=== PATIENT | female | born 1985 | race Caucasian/White ===

== ENCOUNTER 2019-09-01 09:14 | Outpatient (CLI) | payer OTHER, SELFPAY ==
[2019-09-01 09:40] LABS: Hemoglobin A1C 5.5 % (<5.7)
[2019-09-04 00:43] LABS: Insulin Level Total 27.3 uIU/mL (2.0-19.6)
[2019-09-04 12:02] LABS: Vitamin D 25 Hydroxy 39 ng/mL (30-100)
== END 2019-09-01 09:15 | disposition home or self-care (01) ==
LOC: CHSLAB 09:21
PROVIDERS: PCP Family Medicine; Visit Provider Obstetrics & Gynecology Gynecology
DX: E55.9 Vitamin D deficiency, unspecified (principal); E28.2 Polycystic ovarian syndrome
CPT/HCPCS: 36415; 82306; 83036; 83525

== ENCOUNTER → 2020-05-13 12:50 | Outpatient (CLI) | payer OTHER, SELFPAY ==
--- NOTE | ~2020-05-13 | US_ITS ---
EXAMINATION: US transvaginal DATE: 05/13/2020 13:10 INDICATION: Abnormal uterine bleeding, PC OS TECHNIQUE: Multiple endovaginal sonographic images of the pelvis were obtained. COMPARISON: 02/26/2008 FINDINGS: The uterus measures 9.3 x 4.8 x 5.3 cm. The endometrial complex measures 6 mm. The right ov evelin measures 2.9 x 1.7 x 2.4 cm. The left ovary measures 3. 2 x 2 by 1.9 cm. There is normal vascular flow in the ovaries. There is no free fluid in the pelvis. IMPRESSION: 1. No sonographic correlate for the patient's symptoms. Reviewed, dictated and finalized at location A.
== END ==
PROVIDERS: PCP Family Medicine; Visit Provider Nurse Practitioner
DX: N93.9 Abnormal uterine and vaginal bleeding, unspecified (principal)
CPT/HCPCS: 76830

== ENCOUNTER 2020-06-14 11:09 | Outpatient (CLI) | payer OTHER, SELFPAY ==
[2020-06-14 11:25] LABS: Basophils Absolute Auto 0.02 K/mm3 (0.00-0.10); Basophils Percent Auto 0.3 % (0.0-1.0); Eosinophils Absolute Auto 0.05 K/mm3 (0.02-0.50); Eosinophils Percent Auto 0.6 % (1.0-6.0); Hemoglobin 11.8 g/dL (12.0-15.0); Immature Granulocyte Absolute 0.03 K/mm3 (0.00-0.00); Immature Granulocyte Percent A 0.4 % (0.0-0.0); Lymphocytes Percent Auto 45.9 % (18.0-42.0); Mean Corpuscular HGB Conc 31.1 g/dL (32.0-36.0); Mean Corpuscular Volume 83.7 fL (78.0-102.0); Mean Platelet Volume 10.6 fl (9.2-11.8); Monocytes Absolute Auto 0.49 K/mm3 (0.10-0.90); Monocytes Percent Auto 6.2 % (2.0-11.0); Neutrophils Absolute Auto 3.7 K/mm3 (1.7-7.2); Neutrophils Percent Auto 46.6 % (50.0-70.0); Platelet Count Result 344 K/mm3 (150-420); Red Blood Count 4.54 M/mm3 (4.20-5.40); Red Cell Distribution Width 12.7 % (11.6-14.4); White Blood Count 7.9 K/mm3 (4.8-10.8)
[2020-06-14 11:36] LABS: Hemoglobin A1C 5.5 % (<5.7)
[2020-06-14 12:33] LABS: Vitamin B12 434 pg/mL (193-986)
[2020-06-18 04:18] LABS: Insulin Level Total 14.3 uIU/mL (<=19.6)
[2020-06-18 11:37] LABS: DHEA-Sulfate 249 mcg/dL (23-266)
[2020-06-18 12:24] LABS: Vitamin D 25 Hydroxy 17 ng/mL (30-100)
[2020-06-20 10:53] LABS: Testosterone Total 42 ng/dL (2-45)
== END 2020-06-14 11:10 | disposition home or self-care (01) ==
LOC: CHSLAB 11:11
PROVIDERS: PCP Family Medicine; Visit Provider Nurse Practitioner
DX: E55.9 Vitamin D deficiency, unspecified (principal); E28.2 Polycystic ovarian syndrome; L68.0 Hirsutism
CPT/HCPCS: 36415; 82306; 82607; 82627; 83036; 83525; 84403; 85025

== ENCOUNTER 2020-09-19 12:57 | Outpatient (CLI) | payer OTHER, SELFPAY ==
--- NOTE | ~2020-09-19 | US_ITS ---
. EXAMINATION: US pelvic complete DATE: 09/19/2020 13:21 INDICATION: Abnormal uterine bleeding. TECHNIQUE: Multiple transabdominal sonographic images of the pelvis were obtained. COMPARISON: Ultrasound 05/13/2020 FINDINGS: The uterus measures 11.0 x 3.8 x 6.0 cm. There is no free fluid in the pelvis. The endometrial comple x measures 10 mm in thickness. The right ovary measures 1.5 x 1.9 x 1.7 cm. The left ovary measures 2 .9 x 2.0 x 3.0 cm. There is normal vascular flow in the ovaries. IMPRESSION: 1. Normal pelvis. Reviewed, dictated and finalized at location A. [facility] IMPRESSION: 1. Normal pelvis.
== END 2020-09-19 12:58 ==
PROVIDERS: Visit Provider Nurse Practitioner
DX: N93.8 Other specified abnormal uterine and vaginal bleeding (principal)
CPT/HCPCS: 76856

== ENCOUNTER 2020-09-22 15:00 | Outpatient (CLI) | payer OTHER, SELFPAY ==
[2020-09-22 15:10] LABS: Basophils Absolute Auto 0.02 K/mm3 (0.00-0.10); Basophils Percent Auto 0.3 % (0.0-1.0); Eosinophils Absolute Auto 0.01 K/mm3 (0.02-0.50); Eosinophils Percent Auto 0.1 % (1.0-6.0); Hematocrit 40.5 % (35.0-49.0); Hemoglobin 12.6 g/dL (12.0-15.0); Immature Granulocyte Absolute 0.02 K/mm3 (0.00-0.00); Immature Granulocyte Percent A 0.3 % (0.0-0.0); Lymphocytes Absolute Auto 2.78 K/mm3 (1.10-4.50); Lymphocytes Percent Auto 39.5 % (18.0-42.0); Mean Corpuscular HGB Conc 31.1 g/dL (32.0-36.0); Mean Corpuscular Volume 80.2 fL (78.0-102.0); Mean Platelet Volume 11.5 fl (9.2-11.8); Monocytes Absolute Auto 0.45 K/mm3 (0.10-0.90); Monocytes Percent Auto 6.4 % (2.0-11.0); Neutrophils Absolute Auto 3.8 K/mm3 (1.7-7.2); Neutrophils Percent Auto 53.4 % (50.0-70.0); Platelet Count Result 233 K/mm3 (150-420); Red Blood Count 5.05 M/mm3 (4.20-5.40); Red Cell Distribution Width 15.4 % (11.6-14.4)
[2020-09-22 16:19] LABS: Free T4 Free Thyroxine 0.99 ng/dL (0.76-1.46); Thyroid Stimulating Hormone 0.82 uIU/mL (0.36-3.74)
[2020-09-22 16:37] LABS: Beta HCG Quantitative < 1.00 mIU/mL (0-6)
== END 2020-09-22 15:01 | disposition home or self-care (01) ==
LOC: CHSLAB 15:02
PROVIDERS: PCP Family Medicine; Visit Provider Nurse Practitioner
DX: N93.8 Other specified abnormal uterine and vaginal bleeding (principal)
CPT/HCPCS: 36415; 84439; 84443; 84702; 85025

== ENCOUNTER 2020-12-17 10:41 | Emergency (ER) | payer OTHER, SELFPAY ==
--- NOTE | ~2020-12-17 | XR_ITS ---
EXAMINATION: XR chest 2V DATE: 12/17/2020 11:49 INDICATION: Chest pressure. TECHNIQUE: Frontal and lateral views of the chest were obtained. COMPARISON: None. FINDINGS: There is no pneumonia, pleural effusion, or pneumothorax. The heart size is normal. IMPRESSION: 1. No acute cardiopulmonary disease. Reviewed, dictated and finalized at location B.
--- NOTE | ~2020-12-17 | CT_ITS ---
EXAMINATION: CTA chest PE protocol DATE: 12/17/2020 17:26 CDT INDICATION: Chest pain for 3 weeks TECHNIQUE: Computed tomographic angiography (CTA) of the chest was performed with 100 mL Omnipaque-35 0 intravenous contrast. The dose-length product was 468.83 mGy-cm. Maximum intensity projection 3D-re constructions of the aorta and other arteries were constructed by the technologist on a separate work station. Automated exposure control and iterative reconstruction technique were employed. COMPARISON: Chest x-ray dated 12/17/2020 FINDINGS: No significant pleural or pericardial effusion. Study is technically adequate without evide nce for pulmonary embolism. Heart size is normal. No significant pleural or pericardial effusion. Upp er abdomen is unremarkable. No thoracic lymphadenopathy. No evidence for aortic aneurysm or dissectio n. There is dependent atelectasis. No focal pneumonia. No endobronchial lesions. No suspicious pulmon evelin nodules or masses. IMPRESSION: 1. No evidence for pulmonary embolism. No acute cardiopulmonary disease. Reviewed, dictated and finalized at location A.
[2020-12-17 10:57] VITALS: BP 138/93; PULSE 84; RESP 15; TEMP 37.3; O2SAT 100
--- NOTE | 2020-12-17 11:01 | ECG_ITS ---
Measurements Intervals [place] Rate: 80 P: 138 OH: 150 QRS: 127 QRSD: 80 T: 179 QT: 354 QTc: 409 Interpretive Statements SINUS RHYTHM ARM LEADS REVERSED ATYPICAL ECG Electronically Signed On 12-17-2020 13:38:53 CDT by Fabien Benitez D.O.
[2020-12-17 11:09] LABS: Basophils Percent Auto 0.3 % (0.2-1.2); Eosinophils Percent Auto 0.4 % (0-4.4); Hematocrit 38.5 % (37.0-47.0); Immature Granulocyte Absolute 0.04 K/mm3 (0.00-0.031); Immature Granulocyte Percent A 0.4 % (0-0.5); Lymphocytes Absolute Auto 3.37 K/mm3 (0.9-3.2); Lymphocytes Percent Auto 36.4 % (18.3-44.2); Mean Corpuscular HGB Conc 31.2 g/dl (32-36); Mean Corpuscular Hemoglobin 26.3 pg (26-34); Mean Corpuscular Volume 84.4 fl (80-100); Mean Platelet Volume 10.6 fl (7.4-10.4); Monocytes Absolute Auto 0.7 K/mm3 (0.1-0.6); Monocytes Percent Auto 7.6 % (2.6-8.5); Neutrophils Absolute Auto 5.1 K/mm3 (1.3-6.7); Neutrophils Percent Auto 54.9 % (45.5-73.1); Platelet Count Result 300 k/mm3 (150-375); Red Blood Count 4.56 M/mm3 (4.2-5.4); Red Cell Distribution Width 13.9 % (11.5-14.5); White Blood Count 9.3 K/mm3 (4.5-10.0)
[2020-12-17 11:19] LABS: Anion Gap 7 mmol/L (8-16); Blood Urea Nitrogen 13 mg/dL (7-17); Calcium 9.5 mg/dL (8.4-10.2); Carbon Dioxide 30 mmol/L (22-30); Chloride 104 mmol/L (98-107); Estimated CRCL calculation 100 ml/min; Estimated Glomerular Filt Rate > 60; Glucose 93 mg/dL (65-105); Potassium 4.5 mmol/L (3.4-5.0); Sodium 141 mmol/L (137-145)
[2020-12-17 11:22] LABS: Partial Thromboplastin Time 32.6 SECONDS (22.3-36.8)
[2020-12-17 11:31] LABS: Troponin I < 0.012 ng/mL (0.000-0.034)
[2020-12-17 13:53] VITALS: BP 116/89; PULSE 79; RESP 18; TEMP 36.4; O2SAT 100
[2020-12-17 14:23] LABS: Troponin I < 0.012 ng/mL (0.000-0.034)
[2020-12-17 16:04] VITALS: BP 138/93; PULSE 84; RESP 18; TEMP 37.3; O2SAT 100
--- NOTE | 2020-12-17 16:26 | ED.CHESTPAIN ---
HPI - Chest Pain General Chief Complaint: Chest Pain Stated Complaint: chest pain, lower leg swelling Time Seen by Provider: 12/17/20 16:04 Source: patient, family and RN notes reviewed Mode of arrival: ambulatory Limitations: no limitations History of Present Illness HPI narrative: Patient is a 35-year-old female who presents to emergency department for evaluation of left-sided chest pain and swelling in the lower extremities which has been occurring since March saw her primary care doctor for this who ordered a bilateral ultrasound of the lower extremities which was negative for DVT patient notes she has had persistent swelling in the lower extremities. Patient notes she has been experiencing some left-sided chest pain and heaviness. Patient notes that she had an elevated D-dimer as well. Patient denies any URI symptoms fever chills nausea vomiting. Patient denies similar occurrence in the past. Patient notes history of polycystic ovarian disease. Patient denies tobacco abuse. Symptoms worsen with activity patient is scheduled to see Dr. Benitez with cardiology but has not seen him yet Related Data Home Medications Medication Instructions Recorded Confirmed cholecalciferol (vitamin D3) 125 125 mcg PO DAILY 10/29/20 mcg (5,000 unit) capsule escitalopram oxalate 10 mg tablet 10 mg PO DAILY 10/29/20 metformin 500 mg tablet 500 mg PO DAILY 10/29/20 Allergies Allergy/AdvReac Type Severity Reaction Status Date / Time amoxicillin [From Augmentin] Allergy Vomiting Verified 10/29/20 09:23 clavulanic acid Allergy Vomiting Verified 10/29/20 09:23 [From Augmentin] Review of Systems Review of Systems: All systems reviewed & are unremarkable except as noted in HPI and below PMFSH Past Medical History Medical History Anxiety Miscarriage Vaginal delivery x 2 Surgical History Surgical History H/O colposcopy with cervical biopsy History of surgery on arm [place] teeth removed Family History Family History (Updated 10/29/20 @ 09:27 by Jeane Pierson [facility]) Grandparent Breast cancer Carcinoma of colon Stomach cancer Mother Anxiety Social History Social History Smoking status: Never smoker Alcohol intake: current Drinks per week: 1 Substance use: never Gender identity (if verbalized by the patient): Female Exam Narrative: Exam Narrative: GENERAL: Well-appearing, obese, and in no acute distress. HEAD: Normocephalic, atraumatic. EYES: PERRLA and EOMI. ENT: Nares clear, no rhinorrhea or epistaxis. Mucous membranes moist. NECK: Supple. No adenopathy or masses. No carotid bruits or JVD CHEST: Clear to auscultation. No respiratory distress. No wheezes rales or rhonchi HEART: Regular rate and rhythm. No murmur heard. Normal peripheral pulses. ABDOMEN: Soft, nontender, nondistended EXTREMITIES: Normal range of motion. 2+ edema lower extremities SKIN: Warm, dry, no rash. NEURO: No focal deficits. Alert and oriented x3. Neurovascularly intact PSYCH: Normal mood and affect. Course Course Emergency Course: Patient evaluated the emergency department no high risk changes in the evaluation felt that the patient can continue with her plan to follow-up with cardiology and primary care she has been advised to use compression stockings watch her sodium intake and elevate the extremities for symptom relief Vital Signs Vital signs: Vital Signs Temperature 99.2 F 12/17/20 10:57 Pulse Rate 84 12/17/20 10:57 Respiratory Rate 15 12/17/20 10:57 Blood Pressure 138/93 H 12/17/20 10:57 Pulse Oximetry 100 12/17/20 10:57 Temperature 99.2 F 12/17/20 16:04 Pulse Rate 84 12/17/20 16:04 Respiratory Rate 18 12/17/20 16:04 Blood Pressure 138/93 H 12/17/20 16:04 Pulse Oximetry 100 12/17/20 16:04 [facility] -
[2020-12-17 16:38] LABS: NT Pro B Type Natriuretic Pept 30 pg/mL (5-100)
[2020-12-17 16:58] LABS: Alanine Aminotransferase 25 U/L (4-35); Albumin Level 4.5 g/dL (3.5-5.1); Alkaline Phosphatase 54 U/L (38-126); Aspartate Amino Transferase 27 U/L (14-36); Bilirubin,Total 0.5 mg/dL (0.2-1.3)
[2020-12-17 17:10] LABS: Troponin I < 0.012 ng/mL (0.000-0.034)
== END 2020-12-17 18:12 | disposition home or self-care (01) ==
PROVIDERS: Emergency Medicine; Emergency Medicine Emergency Medical Services; Emergency Provider Emergency Medicine; PCP Family Medicine
DX: R07.9 Chest pain, unspecified (principal); R60.0 Localized edema; F41.9 Anxiety disorder, unspecified
CPT/HCPCS: 36415; 71046; 71275; 80048; 80076; 81025; 83880; 84484; 85025; 85610; 85730; 93005; 99284; Q9967

== ENCOUNTER 2021-01-22 07:36 | Outpatient (CLI) | payer OTHER, SELFPAY ==
--- NOTE | 2021-01-22 07:57 | ECHO_ITS ---
Patient Info Name: Pushpa Gloria Age: 35 years : 1985 Gender: Female Ht: 67 in Wt: 240 lbs BSA: 2.32 m2 HR: 71 bpm BP: 133 / 92 mmHg Technical Quality: Good Exam Date: 01/22/2021 8:11 AM Exam Location: [facility] Patient Status: Outpatient Admit Date: 01/22/2021 Staff Ordering Physician: Fabien Benitez DO Psychologist Research Assistant: Jose Daniel Gibbons RDCS, RT Attending Provider: Fabien Benitez DO Referring Physician: Emmanuel VILLASENOR; Exam Type: CA echo doppler color flow Study Info Indications R60.9 - Edema, unspecified Complete two-dimensional, color flow and Doppler transthoracic echocardiogram is performed. Strain analysis performed. Summary 1. Complete two-dimensional, color flow and Doppler transthoracic echocardiogram is performed. 2. Left ventricular chamber dimension is normal. 3. Left ventricular systolic function is normal, estimated at 60-65%. 4. The left ventricular diastolic function is normal. 5. E/e' 6 is not elevated. 6. Global longitudinal strain is normal at -19.1%. 7. Left atrial chamber dimension is mildly enlarged. Left Ventricle E/e' 6 is not elevated. Global longitudinal strain is normal at -19.1%. Left ventricular chamber dimension is normal. Left ventricular systolic function is normal, estimated at 60-65%. The left ventricular diastolic function is normal. Right Ventricle Right ventricular systolic function is normal and with normal TAPSE 2.3 cm. Right ventricular chamber dimension is normal. Left Atria Left atrial chamber dimension is mildly enlarged. Right Atria Right atrial chamber dimension is normal. Aortic Valve The aortic valve is trileaflet. There is no aortic valve stenosis. There is no aortic valve regurgitation. Pulmonic Valve There is no pulmonic regurgitation. Mitral Valve There is no mitral valve stenosis. There is no mitral valve regurgitation. Tricuspid Valve There is no tricuspid valve regurgitation. Pericardium/Pleural There is no pericardial effusion. Inferior Vena Cava Normal inferior vena cava with >50% collapse upon inspiration consistent with normal right atrial pressure, 5 mmHg. Aorta The aortic root size at the sinus of Valsalva is normal. Left Ventricular Outflow Tract Name Value Normal LVOT 2D LVOT Diameter 2.0 cm LVOT Doppler LVOT Peak Gradient 3 mmHg LVOT Mean Gradient 2 mmHg LVOT VTI 20 cm LVOT VTI/AV VTI Ratio 0.9 LVOT Stroke Volume 63 ml LVOT CO 4.9 l/min LVOT CI 2.1 l/min/m2 Mitral Valve Name Value Normal MV Doppler MV Peak Gradient 1 mmHg MV Mean Gradient 0 mmHg MV Decel S
--- NOTE | 2021-01-22 07:58 | EST_ITS ---
Patient Info Name: Pushpa Gloria Age: 35 years : 1985 Gender: Female Ht: 67 in Wt: 240 lbs BSA: 2.32 m2 Exam Date: 01/22/2021 9:18 AM Exam Location: [facility] [place] [facility] Patient Status: Outpatient Admit Date: 01/22/2021 Staff Ordering Physician: Fabien Benitez DO Attending Provider: Fabien Benitez DO Exercise Technologist: Mandy Purvis RDCS Exercise Physician: Fabien Benitez DO Exam Type: CA stress test treadmill Study Info Indications R07.9 - Chest pain, unspecified A treadmill exercise stress test was performed. Summary 1. 1. Negative [place] exercise stress test for ischemic ST changes by ECG criteria. 2. 2. Reduced functional capacity, achieving 7 METs of workload. 3. 3. Hypertensive response to exercise. 4. 4. Appropriate HR response to exercise. 5. 5. Appropriate HR recovery at 1 minute post exercise. 6. 6. No imaging with stress testing. 7. 7. Patient informed of the above results. Protocol: [place] ECG Details Stage: REST Duration (min): 4 min : 33 sec Speed (mph): 0.0 Grade (%): 0 HR (bpm): 69 SBP (mmHg): 130 DBP (mmHg): 78 METS: --- Stage: REST Duration (min): 19 min : 54 sec Speed (mph): 0.0 Grade (%): 0 HR (bpm): 79 SBP (mmHg): 130 DBP (mmHg): 78 METS: --- Stage: STAGE 1 Duration (min): 1 min : 0 sec Speed (mph): 1.7 Grade (%): 10 HR (bpm): 117 SBP (mmHg): 130 DBP (mmHg): 78 METS: --- Stage: STAGE 1 Duration (min): 2 min : 0 sec Speed (mph): 1.7 Grade (%): 10 HR (bpm): 138 SBP (mmHg): 130 DBP (mmHg): 78 METS: --- Stage: STAGE 1 Duration (min): 3 min : 0 sec Speed (mph): 1.7 Grade (%): 10 HR (bpm): 148 SBP (mmHg): 163 DBP (mmHg): 57 METS: --- Stage: STAGE 2 Duration (min): 1 min : 0 sec Speed (mph): 2.5 Grade (%): 12 HR (bpm): 161 SBP (mmHg): 163 DBP (mmHg): 57 METS: --- Stage: STAGE 2 Duration (min): 2 min : 0 sec Speed (mph): 2.5 Grade (%): 12 HR (bpm): 168 SBP (mmHg): 167 DBP (mmHg): 55 METS: --- Stage: STAGE 2 Duration (min): 3 min : 0 sec Speed (mph): 2.5 Grade (%): 12 HR (bpm): 175 SBP (mmHg): 167 DBP (mmHg): 55 METS: --- Stage: RECOVERY Duration (min): 0 min : 59 sec Speed (mph): 0.0 Grade (%): 0 HR (bpm): 149 SBP (mmHg): 213 DBP (mmHg): 63 METS: --- Stage: RECOVERY Duration (min): 1 min : 59 sec Speed (mph): 0.0 Grade (%): 0 HR (bpm): 125 SBP (mmHg): 213 DBP (mmHg): 63 METS: --- Stage: RECOVERY Duration (min): 2 min : 59 sec Speed (mph): 0.0 Grade (%): 0 HR (bpm): 115 SBP (mmHg): 251 DBP (mmHg): 63 METS: --- Stage: RECOVERY Duration (min): 3 min : 59 sec Speed (mph): 0.0 Grade (%): 0 HR (bpm): 113 SBP (mmHg): 243 DBP (mmHg): 63 METS: --- Stage: RECOVERY D
== END 2021-01-22 07:37 | disposition home or self-care (01) ==
PROVIDERS: PCP Family Medicine; Visit Provider Internal Medicine Cardiovascular Disease
DX: R60.0 Localized edema (principal); R07.9 Chest pain, unspecified
CPT/HCPCS: 93017; 93306

== ENCOUNTER 2021-03-02 08:48 | Outpatient (CLI) | payer OTHER, SELFPAY ==
--- NOTE | 2021-03-27 14:28 | WPDHOMESLEEP ---
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 She wakes up during the night usually between 2:00 a.m. and 4:00 a.m.. She notices that she has her arm moving at night, she notices jerking and gasping for air. This has been going on longer than 2 years. She has difficulty falling asleep, staying asleep, she has excessive daytime sleepiness and difficulty waking in the morning. There is a family history with her father having the same problems. She occasionally awakens from sleep feeling short of breath. She rarely awakens at night with heartburn, belching or coughing. She does not snore and does not snore loudly. She occasionally has trouble sleeping with a cold and occasionally wakes up gasping for breath at night. She rarely sweats excessively night. She frequently notices her heart pounding or beating irregularly at night. She constantly falls asleep during the day, rarely involuntarily but never falls asleep while driving. She occasionally has loss of muscle tone with strong emotion. She frequently has daytime difficulties due to excessive sleepiness. She frequently feels paralyzed on waking or falling asleep. She constantly has vivid dreamlike scenes upon awakening or falling asleep. She frequently feels afraid to go to sleep. She frequently has nightmares. She constantly remembers her dreams and constantly has racing thoughts. She frequently feels sad or depressed. She constantly has anxiety. She frequently has muscular tension. She constantly notices parts of her body jerking. She frequently kicks at night. She constantly has crawling and aching feelings in her legs. She frequently has leg pain at night and frequently has morning jaw pain. She occasionally grinds her teeth during sleep. She frequently is bothered by pain during the day. She occasionally is awakened by pain during the night. She frequently wakes up feeling stiff in the morning with sore achy muscles and occasionally wakes up with pain in the neck and spine. She has fatigue, memory problems, concentration difficulties. She takes sedatives. She has insomnia. Normal bedtime is Between 10:00 p.m. and 11:00 p.m. taking 15 minutes to fall asleep but sometimes as long as 1 hour. She typically wakes up 3 times at night. When this happens she will check her phone and then try to go back to sleep. She may stay awake for 20 minutes or as long as an hour. Sometimes he does not go back to sleep at all. She sometimes takes naps on her lunch break. Sometimes a short nap is refreshing. She is usually drowsy in the morning and this may range from 1 hour or as long as 3 hours. She says that she feels as if she could go back to sleep in the bed, and her face feels like sand bags. habits: Never smoked tobacco. Caffeine is used but not daily. One alcoholic beverage a week. No recreational drugs. PMFSH Past Medical History Medical History Anxiety Miscarriage Vaginal delivery x 2 Surgical History Surgical History H/O colposcopy with cervical biopsy History of surgery on arm [place] teeth removed Family History Family History Grandparent Breast cancer Carcinoma of colon Stomach cancer Mother Anxiety Social History Social History Smoking status: Never smoker Alcohol intake: current Drinks per week: 1 Substance use: never Gender identity (if verbalized by the patient): Female Medi
[2021-03-27 14:31] VITALS: BMI 38.3
== END 2021-03-03 10:48 | disposition home or self-care (01) ==
LOC: ANHCSM 08:53
PROVIDERS: PCP Family Medicine; Visit Provider Internal Medicine Cardiovascular Disease
DX: G47.10 Hypersomnia, unspecified (principal)
CPT/HCPCS: 95806

== ENCOUNTER 2021-03-30 12:03 | Emergency (ER) | payer OTHER, SELFPAY ==
--- NOTE | ~2021-03-30 | XR_ITS ---
EXAMINATION: XR ankle RT 2V DATE: 03/30/2021 12:33 INDICATION: Lateral right ankle pain post fall TECHNIQUE: Anteroposterior and lateral views of the right ankle were obtained. COMPARISON: None. FINDINGS: Alignment is normal. No fracture. Joint spaces are well maintained soft tissue swelling about the la teral malleolus. Suggestion of an ankle joint effusion. Small Achilles and plantar calcaneal spurs. IMPRESSION: 1. No acute osseous abnormality. Reviewed, dictated and finalized at location A.
[2021-03-30 12:29] VITALS: BP 122/72; PULSE 92; RESP 20; TEMP 36.7; O2SAT 99
--- NOTE | 2021-03-30 12:55 | ED.LOWEXIN ---
HPI - Extremity Injury (Lower) General Chief Complaint: Extremity Injury, Lower Stated Complaint: hurt right ankle Source: patient Mode of arrival: ambulatory Limitations: no limitations History of Present Illness HPI Narrative: this is a 35-year-old female that presents with a right ankle injury after she was going down a flight of stairs and slipped on the carpeting and twisted her right ankle causing pain inflammation rates her pain about a 4/10, with some mild swelling with no bruising has good range of motion no numbness or tingling. complaint: ankle injury and foot injury Onset (ago): hour(s) Injury: Right: ankle ( Pain with swelling) and foot ( pain with swelling) Type of Injury: inversion Place: home Severity: mild Severity scale (1-10): 4 Relieving factors: cold therapy and immobilization Exacerbating factors: movement and palpation Related Data Home Medications Medication Instructions Recorded Confirmed escitalopram oxalate 10 mg tablet 10 mg PO DAILY 10/29/20 03/30/21 Allergies Allergy/AdvReac Type Severity Reaction Status Date / Time amoxicillin [From Augmentin] Allergy Vomiting Verified 03/30/21 12:35 clavulanic acid Allergy Vomiting Verified 03/30/21 12:35 [From Augmentin] Review of Systems Review of Systems: All systems reviewed & are unremarkable except as noted in HPI and below PMFSH Past Medical History Medical History Anxiety Miscarriage Vaginal delivery x 2 Surgical History Surgical History H/O colposcopy with cervical biopsy History of surgery on arm [place] teeth removed Family History Family History Grandparent Breast cancer Carcinoma of colon Stomach cancer Mother Anxiety Social History Social History Smoking status: Never smoker Alcohol intake: current Drinks per week: 1 Substance use: never Gender identity (if verbalized by the patient): Female Exam Const: General: no acute distress and alert Orientation/consciousness: patient oriented x3 HENMT: Head: normal to inspection Eyes: Conjunctivae: conjunctivae normal Pupils: Equal, round and reactive pupils present EOM: EOMs intact bilaterally Neck: Neck: normal visual inspection, no lymphadenopathy and no meningeal signs Chest: Chest palpation & inspection: normal inspection of the chest Resp: Effort & Inspection: normal respiratory effort Cardio: Rate: regular rate Rhythm: regular rhythm GI: GI Palp: Yes Soft to palpation : General: Yes no CVA tenderness Skin: General skin exam: normal color Rashes: no rashes Neuro: General: patient oriented x3, moves all extremities, no meningeal signs and no focal motor deficits Extrem: Other: Tenderness lateral aspect of her right foot with palpation Psych: Mental Status: mental status grossly normal Affect: normal affect Attitude: cooperative Course Course Emergency Course: patient resting comfortably ice to affected ankle declined any IM pain medication, reviewed x-ray findings with no acute fractures advised a strap. Vital Signs Vital signs: Vital Signs Temperature 36.7 C 03/30/21 12:29 Pulse Rate 92 03/30/21 12:29 Respiratory Rate 20 03/30/21 12:29 Blood Pressure 122/72 03/30/21 12:29 Pulse Oximetry 99 03/30/21 12:29 Temperature 36.7 C 03/30/21 12:29 Pulse Rate 92 03/30/21 12:29 Respiratory Rate 20 03/30/21 12:29 Blood Pressure 122/72 03/30/21 12:29 Pulse Oximetry 99 03/30/21 12:29 Critical Care Time Critical Care Time Critical Care Time: No Discharge Plan Discharge Clinical Impression: Ankle sprain and strain Patient Disposition: Home, Self-Care Condition: Stable Instructions: Antibiotic Form, Ankle Sprain (ED) Additional Instructions: take i
[2021-03-30 13:04] VITALS: BP 115/80; PULSE 81; RESP 20; TEMP 36.7; O2SAT 100
== END 2021-03-30 13:15 | disposition home or self-care (01) ==
PROVIDERS: Emergency Provider Emergency Medicine; PCP Family Medicine
DX: S93.401A Sprain of unspecified ligament of right ankle, initial encounter (principal); W01.0XXA Fall on same level from slipping, tripping and stumbling without subsequent striking against object, initial encounter
CPT/HCPCS: 73600; 99282; 99283

== ENCOUNTER → 2021-08-01 00:32 | Outpatient (CLI) | payer OTHER, SELFPAY ==
[2021-08-02 16:23] LABS: SARS-CoV-2 RNA PCR Negative
== END ==
PROVIDERS: PCP Family Medicine; Visit Provider Internal Medicine Critical Care Medicine
DX: Z01.812 Encounter for preprocedural laboratory examination (principal); Z20.822 Contact with and (suspected) exposure to COVID-19
CPT/HCPCS: C9803; U0003; U0005

== ENCOUNTER 2021-08-03 07:49 | Outpatient (CLI) | payer OTHER, SELFPAY ==
--- NOTE | 2021-08-10 23:02 | WPDSLEEPSTUD ---
Sleep Study Date of Study: 08/03/21 <Paula Wyatt DO - Last Filed: 08/11/21 15:23> Ordering Provider: Luis Titus M.D. <Paula Wyatt DO - Last Filed: 08/11/21 15:23> Interpreting Physician: Paula Wyatt DO <Paula Wyatt DO - Last Filed: 08/11/21 15:23> Sleep Study Type: Polysomnogram <Paula Wyatt DO - Last Filed: 08/11/21 15:23> Height: 1.7 m <Paula Wyatt DO - Last Filed: 08/11/21 15:23> Weight: 107.955 kg <Paula Wyatt DO - Last Filed: 08/11/21 15:23> Body Mass Index: 37.3 <Paula Wyatt DO - Last Filed: 08/11/21 15:23> Neck Circumference (inches): 16 <Paula Wyatt DO - Last Filed: 08/11/21 15:23> [place]: 15 <Paula Wyatt DO - Last Filed: 08/11/21 15:23> Reason for Sleep Study The patient had an HSAT on 03/02/2021 that showed an AHI of 2. She was noted to have multiple symptoms of narcolepsy on her sleep history. 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 She wakes up during the night usually between 2:00 a.m. and 4:00 a.m.. She notices that she has her arm moving at night, she notices jerking and gasping for air. This has been going on longer than 2 years. She has difficulty falling asleep, staying asleep, she has excessive daytime sleepiness and difficulty waking in the morning. There is a family history with her father having the same problems. She occasionally awakens from sleep feeling short of breath. She rarely awakens at night with heartburn, belching or coughing. She does not snore and does not snore loudly. She occasionally has trouble sleeping with a cold and occasionally wakes up gasping for breath at night. She rarely sweats excessively night. She frequently notices her heart pounding or beating irregularly at night. She constantly falls asleep during the day, rarely involuntarily but never falls asleep while driving. She occasionally has loss of muscle tone with strong emotion. She frequently has daytime difficulties due to excessive sleepiness. She frequently feels paralyzed on waking or falling asleep. She constantly has vivid dreamlike scenes upon awakening or falling asleep. She frequently feels afraid to go to sleep. She frequently has nightmares. She constantly remembers her dreams and constantly has racing thoughts. She frequently feels sad or depressed. She constantly has anxiety. She frequently has muscular tension. She constantly notices parts of her body jerking. She frequently kicks at night. She constantly has crawling and aching feelings in her legs. She frequently has leg pain at night and frequently has morning jaw pain. She occasionally grinds her teeth during sleep. She frequently is bothered by pain during the day. She occasionally is awakened by pain during the night. She frequently wakes up feeling stiff in the morning with sore achy muscles and occasionally wakes up with pain in the neck and spine. She has fatigue, memory problems, concentration difficulties. She takes sedatives. She has insomnia. Normal bedtime is Between 10:00 p.m. and 11:00 p.m. taking 15 minutes to fall asleep but sometimes as long as 1 hour. She typically wakes up 3 times at night. When this happens she will check her phone and then try to go back to sleep. She may stay awake for 20 minutes or as long as an hour. Sometimes he does not go back to sleep at all. She sometimes takes naps on her lunch break. Sometimes a short nap is refreshing. She is usually drowsy in the morning and this may range from 1 hour or as long as 3 hours. She says that she feels as if she could go back to sleep in the bed, and her face feels like sand bags. habits: Never smoked tobacco. Caffeine is used but not daily. One alcoholic beverage a week. No recreational drugs. <Paula Wyatt
--- NOTE | 2021-08-10 23:18 | WPDSLEEPSTUD ---
Sleep Study Date of Study: 08/03/21 <Paula Wyatt DO - Last Filed: 08/11/21 15:23> Ordering Provider: Luis Titus M.D. <Paula Wyatt DO - Last Filed: 08/11/21 15:23> Interpreting Physician: Paula Wyatt DO <Paula Wyatt DO - Last Filed: 08/11/21 15:23> Sleep Study Type: Multiple Sleep Latency Test <Paula Wyatt DO - Last Filed: 08/11/21 15:23> Height: 1.7 m <Paula Wyatt DO - Last Filed: 08/11/21 15:23> Weight: 107.955 kg <aPula Wyatt DO - Last Filed: 08/11/21 15:23> Body Mass Index: 37.3 <Paula Wyatt DO - Last Filed: 08/11/21 15:23> Neck Circumference (inches): 16 <Paula Wyatt DO - Last Filed: 08/11/21 15:23> [place]: 15 <Paula Wyatt DO - Last Filed: 08/11/21 15:23> Reason for Sleep Study Hypersomnia <Paula Wyatt DO - Last Filed: 08/11/21 15:23> Sleep History Pushpa Gloria is a 35 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 She wakes up during the night usually between 2:00 a.m. and 4:00 a.m.. She notices that she has her arm moving at night, she notices jerking and gasping for air. This has been going on longer than 2 years. She has difficulty falling asleep, staying asleep, she has excessive daytime sleepiness and difficulty waking in the morning. There is a family history with her father having the same problems. She occasionally awakens from sleep feeling short of breath. She rarely awakens at night with heartburn, belching or coughing. She does not snore and does not snore loudly. She occasionally has trouble sleeping with a cold and occasionally wakes up gasping for breath at night. She rarely sweats excessively night. She frequently notices her heart pounding or beating irregularly at night. She constantly falls asleep during the day, rarely involuntarily but never falls asleep while driving. She occasionally has loss of muscle tone with strong emotion. She frequently has daytime difficulties due to excessive sleepiness. She frequently feels paralyzed on waking or falling asleep. She constantly has vivid dreamlike scenes upon awakening or falling asleep. She frequently feels afraid to go to sleep. She frequently has nightmares. She constantly remembers her dreams and constantly has racing thoughts. She frequently feels sad or depressed. She constantly has anxiety. She frequently has muscular tension. She constantly notices parts of her body jerking. She frequently kicks at night. She constantly has crawling and aching feelings in her legs. She frequently has leg pain at night and frequently has morning jaw pain. She occasionally grinds her teeth during sleep. She frequently is bothered by pain during the day. She occasionally is awakened by pain during the night. She frequently wakes up feeling stiff in the morning with sore achy muscles and occasionally wakes up with pain in the neck and spine. She has fatigue, memory problems, concentration difficulties. She takes sedatives. She has insomnia. Normal bedtime is Between 10:00 p.m. and 11:00 p.m. taking 15 minutes to fall asleep but sometimes as long as 1 hour. She typically wakes up 3 times at night. When this happens she will check her phone and then try to go back to sleep. She may stay awake for 20 minutes or as long as an hour. Sometimes he does not go back to sleep at all. She sometimes takes naps on her lunch break. Sometimes a short nap is refreshing. She is usually drowsy in the morning and this may range from 1 hour or as long as 3 hours. She says that she feels as if she could go back to sleep in the bed, and her face feels like sand bags. habits: Never smoked tobacco. Caffeine is used but not daily. One alcoholic beverage a week. No recreational drugs. <Paula Wyatt, DO - Last Filed: 08/11/21 15:23> [facility] Past Medical History Medical History: Medical History (Revie
[2021-08-11 15:20] VITALS: BMI 37.3
[2021-08-11 15:23] VITALS: BMI 37.3
== END 2021-08-04 16:30 | disposition home or self-care (01) ==
LOC: ANHCSM 07:50
PROVIDERS: PCP Family Medicine; Visit Provider Family Medicine
DX: G47.10 Hypersomnia, unspecified (principal); G47.30 Sleep apnea, unspecified
CPT/HCPCS: 95805; 95810

== ENCOUNTER → 2021-08-20 14:23 | Outpatient (CLI) | payer OTHER, SELFPAY ==
--- NOTE | ~2021-08-20 | US_ITS ---
EXAMINATION: US pelvic complete DATE: 08/20/2021 14:39 INDICATION: Abnormal uterine bleeding Comparison:Ultrasound dated 09/19/2020 TECHNIQUE: Multiple transabdominal and endovaginal sonographic images of the pelvis performed. FINDINGS: The uterus measures 11 x 4.2 x 5.6 cm. There is an IUD in the endometrium. The endometrial complex measures 5 mm. The right ovary measures 3.3 x 2.5 x 4.6 cm and the left ovary measures 4 x 2.1 x 2.9 cm. There are small follicles in each ovary. Normal doppler signal in both ovaries. There is no free fluid in the pelvis. There are no abnormal masses seen on either side. IMPRESSION: 1. Enlarged uterus. IUD present in the endometrium. Otherwise, unremarkable pelvic ultrasound. Reviewed, dictated and finalized at location B. [facility] IMPRESSION: 1. Enlarged uterus. IUD present in the endometrium. Otherwise, unremarkable pel chau ultrasound.
== END ==
PROVIDERS: Visit Provider Obstetrics & Gynecology Gynecology
DX: N93.8 Other specified abnormal uterine and vaginal bleeding (principal); Z97.5 Presence of (intrauterine) contraceptive device; N85.2 Hypertrophy of uterus
CPT/HCPCS: 76856